=== PATIENT | male | born 1990 | race Two or more races ===

== ENCOUNTER 2018-03-08 15:04 | Inpatient (IN) | payer SELFPAY ==
[~2018-03-08] VITALS: Ht 170.2 cm; Wt 73.5 kg
[2018-03-08 16:17] LABS: HEMATOCRIT. 46.5 % (42.0-52.0); MEAN CORPUSCULAR HEMOGLOBIN 29.5 pg (28.0-32.0); MEAN CORPUSCULAR VOLUME 85.4 fL (80.0-94.0); MEAN PLATELET VOLUME 7.6 fl (7.4-10.4); PLATELET 209 x1000/uL (130-400); RED BLOOD CELL COUNT 5.44 mill/uL (4.7-6.1); RED CELL DISTRIBUTION WIDTH 13.5 % (11.6-14.6)
[2018-03-08 16:22] LABS: CHLORIDE 98 mEq/L (98-107)
[2018-03-08 16:23] LABS: PROTHROMBIN TIME 10.2 sec (9.4-11.6)
[2018-03-08 16:34] LABS: CLARITY URINE CLEAR (CLEAR); COLOR URINE YELLOW (YELLOW); KETONES URINE NEGATIVE (NEGATIVE); LEUKOCYTE ESTERASE URINE NEGATIVE (NEGATIVE); NITRITE URINE NEGATIVE (NEGATIVE); OCCULT BLOOD URINE NEGATIVE (NEGATIVE); PROTEIN URINE 1+ (NEGATIVE); SPECIFIC GRAVITY URINE 1.031 (1.005-1.030); UROBILINOGEN URINE 0.2 E.U./dL (0.2-1.0)
[2018-03-08 16:49] LABS: PLATELET ESTIMATE NORMAL
[2018-03-08] MEDS ORDERED: ONDANSETRON HCL 4MG/2ML VIAL IV STA (17:50)
[2018-03-08] MEDS ORDERED: MORPHINE SULFATE 4 MG/ML CPJ (NOT FOR IM USE) IV STA (17:50)
[2018-03-08] MEDS ORDERED: PIPERACILLIN/TAZ 3.375G PREMIX 50 ML IV ONE (18:00)
[2018-03-08] MEDS ORDERED: SODIUM CHLORIDE 0.9% 1000ML BAG (SEPSIS BOLUS) IV ONE (18:00)
[2018-03-08] MEDS ORDERED: SKIN ADHESIVE 0.7 GM EA TOP ONE (19:33)
[2018-03-08] MEDS ORDERED: BUPIVACAINE HCL 0.5% (5MG/ML) 50ML ONE (19:34)
[2018-03-08] MEDS ORDERED: FENTANYL CITRATE/PF 50MCG/ML 5ML VIAL ONE (20:09)
[2018-03-08] MEDS ORDERED: ROCURONIUM BROMIDE 10MG/ML VIAL 5ML IV ONE (20:09)
[2018-03-08] MEDS ORDERED: PROPOFOL 200MG/20ML VIAL IV ONE (20:09)
[2018-03-08] MEDS ORDERED: MIDAZOLAM HCL 2 MG/2 ML VIAL ONE (20:09)
[2018-03-08] MEDS ORDERED: MORPHINE SULFATE 4 MG/ML CPJ (NOT FOR IM USE) IV PRN ×2 (20:15)
[2018-03-08] MEDS ORDERED: HYDROCODONE/ACETAMINOPHEN 5/325MG TABLET PO PRN ×2 (20:15)
[2018-03-08] MEDS ORDERED: SODIUM CHLORIDE 0.9% 1,000 ML IV SCH (20:25)
[2018-03-08] MEDS ORDERED: ONDANSETRON HCL 4MG/2ML VIAL ONE (20:26)
[2018-03-08] MEDS ORDERED: METOCLOPRAMIDE HCL 10MG/2ML VIAL ONE (20:26)
[2018-03-08] MEDS ORDERED: MEPERIDINE HCL/PF 25MG/ML CPJ IV PRN (20:30)
[2018-03-08] MEDS ORDERED: ATROPINE SULFATE 0.4MG/ML VIAL IV PRN (20:30)
[2018-03-08] MEDS ORDERED: ONDANSETRON HCL 4MG/2ML VIAL IV PRN (20:30)
[2018-03-08] MEDS ORDERED: FENTANYL CITRATE/PF 50MCG/ML 2ML VIAL IV PRN (20:30)
[2018-03-08] MEDS ORDERED: HYDROMORPHONE HCL/PF 2MG/ML CPJ IV PRN (20:30)
[2018-03-08 22:23] VITALS: BP 97/55
[2018-03-08 22:52] VITALS: BP 97/65
[2018-03-08] MEDS: DEXT 5%/0.45% NACL KCL 20MEQ/L 1,000 ML IV SCH (23:21)
[2018-03-09 04:00] VITALS: BP 92/40
[2018-03-09 09:00] VITALS: BP 97/45
[2018-03-09] MEDS: DEXT 5%/0.45% NACL KCL 20MEQ/L 1,000 ML IV SCH (09:16)
[2018-03-09 09:22] LABS: HEMATOCRIT. 37.6 % (42.0-52.0); HEMOGLOBIN. 12.9 g/dL (14.0-18.0); MEAN CORPUSCULAR HEMOGLOBIN 28.9 pg (28.0-32.0); MEAN CORPUSCULAR VOLUME 83.9 fL (80.0-94.0); MEAN PLATELET VOLUME 7.5 fl (7.4-10.4); PLATELET 148 x1000/uL (130-400); RED BLOOD CELL COUNT 4.48 mill/uL (4.7-6.1); RED CELL DISTRIBUTION WIDTH 13.9 % (11.6-14.6)
[2018-03-09 09:33] LABS: CHLORIDE 102 mEq/L (98-107)
[2018-03-09 12:16] VITALS: BP 100/53
[2018-03-09] MEDS ORDERED: ACETAMINOPHEN 325MG TABLET PO PRN (13:00)
[2018-03-09 15:42] VITALS: BP 100/57
[2018-03-09 18:01] LABS: PLATELET ESTIMATE NORMAL
== END 2018-03-09 16:15 | disposition home or self-care (01) | DRG 225 ==
LOC: ER 15:04 → 6EST 18:00 → ENRESERV 18:57
PROVIDERS: ADMIT Family Medicine; ATTEND Family Medicine
PROC: 0DTJ4ZZ Resection of Appendix, Percutaneous Endoscopic Approach (ICD-10-PCS; principal; 2018-03-08 20:00)
DX: K35.80 Unspecified acute appendicitis (principal)
CPT/HCPCS: 36415; 71045; 76857; 80053; 81003; 83690; 85025; 85610; 85730; 88304; 93005; 96365; 96375; 99285; J2250; J2270; J2405; J2543; J2704; J2765; J3010; J3490; J7030